=== PATIENT | male | born 1985 ===

== ENCOUNTER 2020-06-24 13:07 | Emergency (ER) | payer OTHER ==
[~2020-06-24 13:07] MED LIST: IBUPROFEN800 MG PO; MEDROL 4MG DOSEP4 MG PO; NAPROXEN500 MG PO; PATANOL5 ML EYEBOTH; PENICILLIN V P500 MG PO; PROTONIX 40MG T40 MG PO
[2020-06-24 15:22] LABS: CORONAVIRUS 2019 SARS-COV-2 POSITIVE (NEGATIVE); INFLUENZA A NAA NEGATIVE (NEGATIVE)
== END 2020-06-24 16:20 | disposition home or self-care (01) ==
LOC: FER 13:07
PROVIDERS: Emergency Medicine
DX: U07.1 COVID-19 (principal); F17.200 Nicotine dependence, unspecified, uncomplicated
CPT/HCPCS: 71046; 87880; U0002